=== PATIENT | female | born 1990 | race African-American/Black ===

== ENCOUNTER 2017-06-06 17:42 | Emergency (ER) | payer SELFPAY ==
[2017-06-06 18:18] LABS: URINE HCG POC HCG NEGATIVE (Negative)
[2017-06-06] MEDS ORDERED: 0.9 % SODIUM CHLORIDE 10 ML DISP.SYRIN. IV (18:30)
[2017-06-06 18:38] LABS: BASO % 0 % (0-3); EOS % 0 % (0-3); HEMATOCRIT 42.4 % (36.0-47.0); HEMOGLOBIN 14.3 g/dL (12.0-15.5); LYMPH # 1.1 x10^3/uL (1.0-4.8); LYMPH % 10 % (24-48); MEAN CORPUSCULAR HEMOGLOBIN 30 pg (25-35); MEAN CORPUSCULAR HGB CONC 34 g/dL (31-37); MEAN CORPUSCULAR VOLUME 90 fL (79-100); MONO # 0.3 x10^3/uL (0.0-1.1); MONO % 2 % (0-9); NEUT # 10.3 x10^3uL (1.8-7.7); NEUT % 88 % (31-73); PLATELET COUNT 235 x10^3/uL (140-400); RED BLOOD COUNT 4.73 x10^6/uL (3.50-5.40); RED CELL DISTRIBUTION WIDTH 14.8 % (11.5-14.5); WHITE BLOOD COUNT 11.7 x10^3/uL (4.0-11.0)
[2017-06-06] MEDS: IV NORMAL SALINE 1000ML BAG 1,000 ML IV (18:41)
[2017-06-06] MEDS: DICYCLOMINE HCL 10 MG CAPSULE PO (18:42)
[2017-06-06] MEDS: FAMOTIDINE 20 MG/2 ML VIAL IVP (18:42)
[2017-06-06] MEDS: ONDANSETRON PF 4 MG/2 ML VIAL. IV (18:42)
[2017-06-06 18:43] LABS: ADD MAN DIFF? YES
[2017-06-06 18:44] LABS: BILIRUBIN,URINE NEGATIVE (NEG); CLARITY,URINE CLEAR; COLOR,URINE YELLOW; GLUCOSE,URINE NEGATIVE (NEG); NITRITE,URINE NEGATIVE (NEG); PH,URINE 5.5; PROTEIN,URINE 30 mg/dL (NEG-TRACE)
[2017-06-06 18:55] LABS: BACTERIA,URINE 0 /HPF (0-FEW); RBC,URINE RARE /HPF (0-2); SQUAMOUS EPITHELIAL CELL,UR OCC /LPF; WBC,URINE OCC /HPF (0-4)
[2017-06-06 19:11] LABS: ANION GAP 11 (6-14); BLOOD UREA NITROGEN 12 mg/dL (7-20); CARBON DIOXIDE 22 mmol/L (21-32); CHLORIDE 108 mmol/L (98-107); CREATININE 0.9 mg/dL (0.6-1.0); GFR 92.3; GLUCOSE 103 mg/dL (70-99); POTASSIUM 3.8 mmol/L (3.5-5.1); SODIUM 141 mmol/L (136-145)
[2017-06-06 19:17] LABS: % BANDS 7 % (0-9); % LYMPHS 9 % (24-48); % MONOS 6 % (0-10); % SEGS 78 % (35-66); ALBUMIN 3.6 g/dL (3.4-5.0); ALK PHOS 44 U/L (46-116); ALT (SGPT) 15 U/L (14-59); AST (SGOT) 12 U/L (15-37); CRENATED RBC PRESENT; DIRECT BILIRUBIN 0.1 mg/dL (0.0-0.2); LIPASE 76 U/L (73-393); PLT ESTIMATE ADEQUATE (ADEQUATE); POIKILOCYTOSIS SLIGHT; TOTAL BILIRUBIN 0.3 mg/dL (0.2-1.0); TOTAL PROTEIN 7.5 g/dL (6.4-8.2)
== END 2017-06-06 20:19 | disposition home or self-care (01) ==
LOC: ER 17:42
DX: R11.2 Nausea with vomiting, unspecified (principal); R10.84 Generalized abdominal pain; R61 Generalized hyperhidrosis; R53.1 Weakness
CPT/HCPCS: 36415; 80048; 80076; 81001; 81025; 83690; 85007; 85025; 96361; 96374; 96375; 99284-25; J2405; J7030; S0028